=== PATIENT | male | born 2000 | race Caucasian/White ===

== ENCOUNTER 2023-05-24 10:14 | Emergency (ER) | payer MEDICAID ==
[~2023-05-24] VITALS: Ht 170 cm; Wt 54.0 kg
--- NOTE | 2023-05-24 10:55 | Diagnostic Imaging Report ---
INDICATION: Unknown injury to right hand, pain. TECHNIQUE: Three views of the right hand. CORRELATION STUDY: None FINDINGS: The fingers, particularly little finger is hard and has partial flexure at the proximal interphalangeal joint. This does limit assessment. However, acute fracture or dislocation does not appear to be suggested. There is prominent soft tissue swelling along the dorsal and ulnar aspect of the hand near the fifth MCP joint. IMPRESSION: 1. Negative for acute bony abnormality of the hand. Prominent soft tissue swelling along the dorsal and ulnar aspect of the hand. Dictated by: Dictated on workstation # [id number]
--- NOTE | 2023-05-24 10:55 | Diagnostic Imaging Report ---
Indication: Pain COMPARISON: None available. TECHNIQUE: 3 radiographs of the right foot dated 05/24/2023. FINDINGS: No acute fracture or dislocation. No destructive osseous process. Minimal joint space narrowing 1st MTP joint. Lisfranc joint appears well aligned. No suspicious radiopaque foreign body. IMPRESSION: No acute osseous abnormality with minimal joint space narrowing of the 1st MTP joint. Dictated by: Dictated on workstation # [id number]
--- NOTE | 2023-05-24 11:27 | ED Lower Extremity ---
General Chief Complaint: Lower Extremity Stated Complaint: INJ RIGHT HAND AND RIGHT FOOT Nursing Triage Note: PT AMB TO [facility] PT CO OF R BIG TOE PAIN FROM STUBBING THIS AM AND R HAND PAIN FROM A COUPLE DAYS AGO INJURED NOT SURE HOW WAS AT [employer]. RATES PAIN HAND 6/10. RATES TOE 8/10 Source: patient Exam Limitations: no limitations (OLGA HERNANDEZ) History of Present Illness Date Seen by Provider: May 24, 2023 Time Seen by Provider: 11:20 Initial Comments This is a 22 yo male that presented with right foot and toe pain that started prior to arrival. Pt also has pain of right hand pain that happened a few days ago at [facility] [employer]. Pt states that he was running and "banged" his "big toe" against something. The pain is constant, sharp, and is rated as 8/10 currently. Pt has not tried anything to help with pain and has no other associated symptoms. Pain is worse with walking. No radiation of pain. Location Injury Occurred: Right first digit of foot Onset: just prior to arrival Severity: mild Pain/Injury Location: right foot, right 1st toe Method of Injury: other (running and hitting toe against wall) (OLGA HERNANDEZ) Allergies and Home Medications Allergies Coded Allergies: No Known Drug Allergies (Unverified , 05/24/23) Patient Home Medication List Home Medication List Reviewed: Yes (MODESTO SCOTT MD) Review of Systems Constitutional: no symptoms reported Musculoskeletal: joint pain (right foot 1st digit and 3rd, 4th, and 5th metacarpals of right hand.), joint swelling Psychiatric/Neurological: Denies Numbness, Denies Paresthesia, Denies Tingling, Denies Weakness (OLGA HERNANDEZ) Past Ngvhfaj-Coqpmz-Polkdv Hx Patient Social History Tobacco Use?: No Alcohol Use?: Yes (OLGA HERNANDEZ) Physical Exam Vital Signs Vital Signs - First Documented 05/24/23 10:25 Temp 36.5 Pulse 94 Resp 16 B/P (MAP) 134/92 (106) Pulse Ox 98 O2 Delivery Room Air (MODESTO SCOTT MD) Vital Signs Capillary Refill : (OLGA HERNANDEZ) Height, Weight, BMI Height: '" Weight: lbs. oz. kg; 18.00 BMI Method: General Appearance: WD/WN, no apparent distress Hips: bilateral hip non-tender, bilateral hip normal inspection, bilateral hip normal range of motion, bilateral hip no evidence of injury Legs: bilateral leg non-tender, bilateral leg normal inspection, bilateral leg normal range of motion, bilateral leg no evidence of injury Knees: bilateral knee non-tender, bilateral knee normal inspection, bilateral knee normal range of motion, bilateral knee no evidence of injury Ankles: bilateral ankle non-tender, bilateral ankle normal inspection, bilateral ankle normal range of motion, bilateral ankle no evidence of injury Feet: left foot non-tender, left foot normal inspection, left foot normal range of motion, left foot no evidence of injury; right foot limited range of motion (1st digit. 2-4 digits ROM intact), right foot other (1st digit on right foot was swollen with bruising. Dorsalis pedis pulse 2+ b/l) Neurologic/Tendon: normal sensation, normal motor functions, responds to pain Neurologic/Psychiatric: alert, normal mood/affect, oriented x 3 Skin: normal color, warm/dry Bruising and swelling noted around right foot 1st digit and distal metacarpals of 3rd, 4th, and 5th digits of right hand. Tenderness with palpation. Dorsalis Pedis and Radial pulse 2+b/l. 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 Patient was given naproxen 500mg PO x1 and ice bags for pain. (OLGA HERNANDEZ) Progress Note : Time: 11:38 Progress Note Patient seen and evaluated by me. Evaluation today includes physical exam, x- rays of the right hand and right foot. Pertinent physical exam findings swelling over the fifth metacarpophalangeal joint of the right hand with full range of motion. Patient has previous deformity at the PIP joint. Cap refill is brisk, intact sensation. Right foot reveals tenderness to palpation at the right MTP joint with mild erythema and swelling. Differential diagnosis includes boxer's fracture right hand, fracture of the right foot. X-rays independently reviewed and interpreted by me. No evidence of fracture at either site. No evidence of dislocation. 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 Patient is treated with naproxen 500 mg p.o. x1 in the emergency department. Advised ice and elevation to the right foot. Kvik-ewg-kcskzuz Aleve or generic equivalent for discomfort at home. Return precautions provided. All questions are sought and answered. Patient is stable for discharge (MODESTO SCOTT MD) Diagnostic Imaging Diagonstic Imaging: Xray [facility] [place] [place] NAME: TRUDI PRYOR [facility] REC#: [id number] PT STATUS: REG ER : 2000 PHYSICIAN: MODESTO SCOTT MD ADMIT DATE: 05/24/23/ER Signed Date of Exam:05/24/23 HAND, RIGHT, 3 VIEWS INDICATION: Unknown injury to right hand, pain. TECHNIQUE: Three views of the right hand. CORRELATION STUDY: None FINDINGS: The fingers, particularly little finger is hard and has partial flexure at the proximal interphalangeal joint. This does limit assessment. However, acute fracture or dislocation does not appear to be suggested. There is prominent soft tissue swelling along the dorsal and ulnar aspect of the hand near the fifth MCP joint. IMPRESSION: 1. Negative for acute bony abnormality of the hand. Prominent soft tissue swelling along the dorsal and ulnar aspect of the hand. Dictated by: Dictated on workstation # [id number] Dict: 05/24/23 1042 Trans: 05/24/231125 AS6 [id number] Interpreted by: CLAYTON MEJIA DO Electronically signed by: CLAYTON MEJIA DO 05/24/23 1126 Diagonstic Imaging: Xray Comments [facility] [place] [place] NAME: TRUDI PRYOR [facility] REC#: [id number] PT STATUS: REG ER : 2000 PHYSICIAN: MODESTO SCOTT MD ADMIT DATE: 05/24/23/ER Signed Date of Exam:05/24/23 FOOT, RIGHT, 3 VIEW Indication: Pain COMPARISON: None available. TECHNIQUE: 3 radiographs of the right foot dated 05/24/2023. FINDINGS: No acute fracture or dislocation. No destructive osseous process. Minimal joint space narrowing 1st MTP joint. Lisfranc joint appears well aligned. No suspicious radiopaque foreign body. IMPRESSION: No acute osseous abnormality with minimal joint space narrowing of the 1st MTP joint. Dictated by: Dictated on workstation # [id number] Dict: 05/24/23 1046 Trans: 05/24/23 1100 B[place]NER [id number] Interpreted by: TERE HUMMEL MD Electronically signed by: TERE HUMMEL MD 05/24/23 1100 (MODESTO SCOTT MD) Departure Impression Primary Impression: Contusion of great toe of right foot Qualified Codes: S90.111A - Contusion of right great toe without damage to nail, initial encounter Additional Impression: Contusion of right hand Qualified Codes: S60.221A - Contusion of right hand, initial encounter Disposition: 01 HOME, SELF-CARE Condition: Stable Departure-Patient Inst. Decision time for Depature: 11:38 (MODESTO SCOTT MD) Referrals: [facility],LOCAL PHYSICIAN (PCP) Primary Care Physician Patient Instructions: Minor Contusion ED Add. Discharge Instructions: Elevate the right foot to help decrease swelling. Ice packs to the right foot and hand for swelling as well. Over the counter Generic Aleve - take 1 pill twice a day with food for pain. Return to the Emergency Department for any new, concerning or emergent complaints. Work/School Note: Work Release Form Date Seen in the Emergency Department: May 24, 2023 Return to Work: May 25, 2023 Verification and Attestation of Medical Student E/M Service A medical student performed and documented this service in my presence. I reviewed and verified all information documented by the medical student and made modifications to such information, when appropriate. I personally performed the physical exam and medical decision making. [place] Scott, May 25, 2023,07:44 (MODESTO SCOTT MD) OLGA HERNANDEZ May 24, 2023 11:27 MODESTO SCOTT MD May 24, 2023 11:40
[2023-05-24] MEDS ORDERED: NAPROXEN 250 MG TABLET PO ONE (11:45)
[2023-05-24 11:52] VITALS: BP 134/92
== END 2023-05-24 11:51 | disposition home or self-care (01) ==
LOC: ER 10:19
DX: S90.111A Contusion of right great toe without damage to nail, initial encounter (principal); S60.221A Contusion of right hand, initial encounter; W22.01XA Walked into wall, initial encounter; Y93.02 Activity, running
CPT/HCPCS: 73130; 73630